=== PATIENT | female | born 1945 | race Caucasian/White ===

== ENCOUNTER 2022-02-02 10:31 | Emergency (ER) | payer MEDICARE, MEDICAID ==
[2022-02-02] MEDS ORDERED: predniSONE 20 MG Tab PO ONE (10:57)
[2022-02-02] MEDS ORDERED: Albuterol/Ipratropium 3.0-0.5 MG/3 ML Neb Soln NEB ONE (10:57)
[2022-02-02] MEDS ORDERED: Ketorolac 30 MG/ML SDV IM ONE (10:57)
[2022-02-02 11:16] LABS: ESTIMATED GFR 67 mL/min (>60)
[2022-02-02] MEDS ORDERED: Sodium Chloride 0.9% 10 ML Syringe FLUSH PRN (11:50)
== END 2022-02-02 14:05 | disposition home or self-care (01) ==
LOC: FB.ED 10:31
DX: J44.1 Chronic obstructive pulmonary disease with (acute) exacerbation (principal); R09.1 Pleurisy; F17.210 Nicotine dependence, cigarettes, uncomplicated; Z79.899 Other long term (current) drug therapy
CPT/HCPCS: 36415; 71045; 71275; 80053; 83880; 84484; 85025; 85379; 93005; 94640; 96372; 99285; J1885; J7512; J7620

== ENCOUNTER 2022-02-08 05:13 | Emergency (ER) | payer MEDICAID, MEDICARE ==
[2022-02-08] MEDS ORDERED: Sodium Chloride 0.9% 10 ML Syringe FLUSH PRN (05:51)
[2022-02-08] MEDS ORDERED: Ondansetron 4 MG/2 ML SDV IVPUSH ONE (05:53)
[2022-02-08] MEDS ORDERED: Morphine 4 MG/ML VIAL IVPUSH ONE (05:53)
[2022-02-08] MEDS ORDERED: Sodium Chloride 0.9% 500 ML IV ONE (05:53)
[2022-02-08] MEDS ORDERED: Sodium Chloride 0.9% 1,000 ML IV SCH (06:00)
[2022-02-08 06:12] LABS: ESTIMATED GFR 59 mL/min (>60)
[2022-02-08] MEDS ORDERED: Iopamidol 755 Mg/ML 75 ML Bottle IV ONE (07:14)
== END 2022-02-08 09:10 | disposition home or self-care (01) ==
LOC: FB.ED 05:13
DX: I26.99 Other pulmonary embolism without acute cor pulmonale (principal); J98.19 Other pulmonary collapse; Z79.899 Other long term (current) drug therapy; Z79.01 Long term (current) use of anticoagulants; Z87.891 Personal history of nicotine dependence
CPT/HCPCS: 36415; 71275; 80053; 83735; 84484; 85025; 85610; 85730; 93005; 93010; 96361; 96374; 96375; 99283; 99285-25; J2270; J2405; J3490; J7040; Q9967

== ENCOUNTER 2022-03-03 12:41 | Observation (INO) | payer MEDICARE, MEDICAID ==
[2022-03-03] MEDS ORDERED: Sodium Chloride 0.9% 10 ML Syringe FLUSH PRN (13:04)
[2022-03-03] MEDS: Morphine 2 MG/ML SYRINGE IVPUSH PRN ×3 (13:38→23:10)
[2022-03-03] MEDS ORDERED: Ondansetron 4 MG/2 ML SDV IVPUSH PRN (13:45)
[2022-03-03] MEDS: Albuterol/Ipratropium 3.0-0.5 MG/3 ML Neb Soln NEB SCH ×3 (14:34→20:45)
[2022-03-03] MEDS: Codeine/guaiFENesin 10-100 MG/5 ML Syrup 5 ML Cup PO SCH ×2 (14:34→18:32)
[2022-03-03] MEDS ORDERED: fentaNYL 100 MCG/2 ML SDV IVPUSH ONE (15:16)
[2022-03-03] MEDS ORDERED: Iopamidol 755 Mg/ML 75 ML Bottle IV ONE (15:38)
[2022-03-03] MEDS ORDERED: Warfarin Sliding Scale PO SCH (16:00)
[2022-03-03] MEDS ORDERED: Warfarin 5 MG Tab PO ONE (16:00)
[2022-03-03] MEDS: fentaNYL 100 MCG/2 ML SDV IVPUSH PRN (20:23)
[2022-03-03] MEDS: Enoxaparin 80 MG/0.8 ML Syringe SUBCUT SCH (20:45)
[2022-03-04] MEDS: fentaNYL 100 MCG/2 ML SDV IVPUSH PRN ×3 (01:36→11:14)
[2022-03-04] MEDS: Codeine/guaiFENesin 10-100 MG/5 ML Syrup 5 ML Cup PO SCH ×2 (01:54→07:55)
[2022-03-04 07:00] LABS: ESTIMATED GFR 77 mL/min (>60)
[2022-03-04] MEDS: Morphine 2 MG/ML SYRINGE IVPUSH PRN (08:45)
[2022-03-04] MEDS: Albuterol/Ipratropium 3.0-0.5 MG/3 ML Neb Soln NEB SCH ×2 (09:32→11:26)
[2022-03-04] MEDS: Enoxaparin 80 MG/0.8 ML Syringe SUBCUT SCH (09:34)
[2022-03-04] MEDS ORDERED: Warfarin 5 MG Tab PO ONE (16:00)
== END 2022-03-04 11:25 ==
LOC: UNDOADMOB 12:41 → FB.MS 12:41
PROVIDERS: ADMIT Family Medicine; ATTEND Family Medicine
DX: I26.99 Other pulmonary embolism without acute cor pulmonale (principal); J18.1 Lobar pneumonia, unspecified organism; J44.1 Chronic obstructive pulmonary disease with (acute) exacerbation; Z87.891 Personal history of nicotine dependence; Z20.822 Contact with and (suspected) exposure to COVID-19; Z79.01 Long term (current) use of anticoagulants; Z79.891 Long term (current) use of opiate analgesic
CPT/HCPCS: 36415; 71275; 80053; 83880; 84484; 85025; 87040; 87070; 87205; 94640; 96372; 96374; 96375; 96376; A9270; G0008; G0378; G0379; J1650; J2270; J3010; J3490; Q9967; U0002; 90662; J7620